=== PATIENT | male | born 1980 | race Caucasian/White ===

== ENCOUNTER 2018-05-26 21:58 | Emergency (ER) | payer OTHER ==
--- NOTE | 2018-05-26 23:07 | EDM.PDOC ---
ED HPI GENERAL MEDICAL PROBLEM - General Chief Complaint: Head Injury Stated Complaint: FELL ON ICE Time Seen by Provider: 05/26/18 23:07 Source of Information: Reports: Patient History Limitations: Reports: No Limitations - History of Present Illness INITIAL COMMENTS - FREE TEXT/NARRATIVE: pt arrived a 10 pm after falling on the ice at 7 pm. He was not knocked out. He is not nauseated or vomiting,. He has a low grade headache. He has not felt confused in any way. Onset: Today, Sudden Duration: Hour(s):, Other ( It has been 3 hours since the incident occured. ) Location: Reports: Head, Neck Associated Symptoms: Reports: No Other Symptoms Head Pain Score (Numeric/FACES): 3 - Related Data Allergies Allergy/AdvReac Type Severity Reaction Status Date / Time No Known Allergies Allergy Verified 05/26/18 22:20 Home Meds: Home Meds NK [No Known Home Meds] 05/26/18 [History] Past Medical History HEENT History: Reports: Allergic Rhinitis, Impaired Vision Respiratory History: Reports: Sleep Apnea Neurological History: Reports: Headaches, Chronic Endocrine/Metabolic History: Reports: Obesity/BMI 30+ - Infectious Disease History Infectious Disease History: Reports: Chicken Pox - Past Surgical History GI Surgical History: Reports: Appendectomy, Bariatric Procedure Social & Family History - Tobacco Use Smoking Status *Q: Never Smoker - Caffeine Use Caffeine Use: Reports: Energy Drinks - Recreational Drug Use Recreational Drug Use: Yes ED ROS GENERAL - Review of Systems Review Of Systems: See Below Constitutional: Reports: No Symptoms HEENT: Reports: No Symptoms Respiratory: Reports: No Symptoms Cardiovascular: Reports: No Symptoms Endocrine: Reports: No Symptoms GI/Abdominal: Reports: No Symptoms : Reports: No Symptoms Musculoskeletal: Reports: Other ( tightness in the post cervical area. ) Skin: Reports: No Symptoms Neurological: Reports: Headache, Other ( The headache has remained low grade. ) ED EXAM, HEAD INJURY - Physical Exam Exam: See Below Text/Narrative:: Pt was bring his daughter from dance and he slipped on the ice and he hit the back of his head and neck. He was not knocked out. Exam Limited By: No Limitations General Appearance: Alert, No Apparent Distress, Other (pupils are equal and reactive. He is able to give a good history. ) Head: Other ( Pt does not have any swelling on the back of his head. ) Ears: Normal TMs Nose: Normal Inspection Throat/Mouth: Normal Inspection Neck: Other ( tender in the post cervical area. ) Respiratory: No Respiratory Distress Cardiovascular: Regular Rate, Rhythm GI/Abdominal Exam: Soft, No Mass (Male) Exam: Deferred Rectal (Males) Exam: Deferred Back Exam: Normal Inspection Extremities: Normal Inspection Neurologic: Alert, Oriented x 3 Course - Vital Signs Last Recorded V/S: Last Vital Signs Temp 36.1 C 05/26/18 22:30 Pulse 52 L 05/26/18 22:30 Resp 16 05/26/18 22:30 BP 148/95 H 05/26/18 22:30 Pulse Ox 97 05/26/18 22:30 - Orders/Labs/Meds Orders: Active Orders 24 hr Category Date Time Status Cervical Spine Min 4V [CR] Stat Exams 05/26/18 22:39 Taken - Re-Assessments/Exams Free Text/Narrative Re-Assessment/Exam: 05/26/18 23:14 cervical spine series was neg. Departure - Departure Time of Disposition: 23:06 Disposition: Home, Self-Care 01 Condition: Fair Clinical Impression: Contusion of head, Contusion of neck - Discharge Information Referrals: Zander Ervin POLICY INTERN [Primary Care Provider] - Forms: ED Department Discharge Care Plan Goals: cool pack to the neck, call or rtc if further symptoms. - My Orders Last 24 Hours: My Active Orders 05/26/18 22:39 Cervical Spine Min 4V [CR] Stat - Assessment/Plan Last 24 Hours: My Active Orders 05/26/18 22:39 Cervical Spine Min 4V [CR] Stat
[2018-05-26] MEDS ORDERED: Acetaminophen 325 MG Tab PO ONE (23:11)
--- NOTE | 2018-05-27 09:15 | CR ---
String of the cervical spine. Mild disc height loss C5-6 with anterior osteophytosis. No bony foraminal narrowing. No evidence for fracture.
== END 2018-05-26 23:23 | disposition home or self-care (01) ==
LOC: JP.ED 21:58
DX: S00.93XA Contusion of unspecified part of head, initial encounter (principal); S10.93XA Contusion of unspecified part of neck, initial encounter; W00.0XXA Fall on same level due to ice and snow, initial encounter
CPT/HCPCS: 72050; 72050-26; 99284